=== PATIENT | female | born 1980 | race Caucasian/White ===

== ENCOUNTER 2017-10-18 06:23 | Day surgery (SDC) | payer BC ==
[~2017-10-18] VITALS: Ht 167.6 cm; Wt 55.8 kg
[2017-10-18] VITALS (8 sets, daily range): BP systolic 108–133; BP diastolic 54–96
[2017-10-18] MEDS ORDERED: Lidocaine 1% MPF 10mg/ml 5ml ONE (06:24)
[2017-10-18] MEDS ORDERED: Propofol 200mg/20ml IV ONE (06:24)
[2017-10-18] MEDS ORDERED: Midazolam 2mg/2ml Inj ONE (06:24)
[2017-10-18] MEDS ORDERED: LIALDA1.2 GM ORAL (07:00)
[2017-10-18] MEDS ORDERED: LR 1000ml 1,000 ML IVLG SCH ×2 (07:00→07:17)
--- NOTE | 2017-10-18 07:17 | Anethesia Preoperative Eval ---
Anesthesia Pre-op PMH/ROS General Date of Evaluation: Oct 18, 2017 Time of Evaluation: 07:01 Anesthesiologist: Anamika ASA Score: ASA 1 Mallampati Score Class I : Soft palate, uvula, fauces, pillars visible Class II: Soft palate, uvula, fauces visible Class III: Soft palate, base of uvula visible Class IV: Only hard plate visible Mallampati Classification: Class I Surgeon: Michael Diagnosis: Abd Pain Surgical Procedure: Colonoscopy Anesthesia History: none Family History: no anesthesia problems Allergies: Coded Allergies: MORPHINE (Verified Allergy, Severe, 10/18/17) palpitations, sob Medications: see eMAR Past Medical History Pulmonary: Reports: other - Bronchitis , Pneumonia Gastrointestinal/Genitourinary: Reports: other - Ucerative Colitis, UTI Anesthesia Pre-op Phys. Exam Physician Exam Last Vital Signs Date Time Temp Pulse Resp B/P (MAP) Pulse Ox O2 Delivery O2 Flow Rate FiO2 10/18/17 07:03 98.5 71 16 108/68 100 Room Air 98.5 Constitutional: NAD Neurologic: CN 2-12 intact Cardiovascular: RRR Respiratory: CTA Gastrointestinal: S/NT/ND Airway Exam Mallampati Score: Class I MO: full ROM: full Teeth: intact Anesthesia Pre-op A/P Labs Urine Test Test 10/18/17 06:35 Urine HCG, Qualitative Pending Risk Assessment & Plan Assessment: GA Plan: GA Status Change Before Surgery: Mac Gore MD Oct 18, 2017 07:17
--- NOTE | 2017-10-18 07:18 | Pre-Procedure Note/Attestation ---
Pre-Procedure Note/Attestation Complete Prior to Procedure Planned Procedure: not applicable Procedure Narrative: colon Indications for Procedure Pre-Operative Diagnosis: colon polyp, UC Attestation I attest that I discussed the nature of the procedure; its benefits; risks and complications; and alternatives (and the risks and benefits of such alternatives ), prior to the procedure, with the patient (or the patient's legal operations representative). I attest that, if there was a reasonable possibility of needing a blood transfusion, the patient (or the patient's legal operations representative) was given the [facility] standardized written summary, pursuant to the [place] Blood Safety Act ([place] Health and Safety Code # 1645, as amended). I attest that I re-evaluated the patient just prior to the surgery and that there has been no change in the patient's H&P, except as documented below: CAMILLE NORIEGA Oct 18, 2017 07:18
--- NOTE | 2017-10-18 07:19 | Short Stay Surgery H&P ---
History of Present Illness History of Present Illness Chief Complaint See typed and updated H&P HPI Jacquie Verde is a 37 year old female who was admitted on for Ulcerated Colitis Patient History Allergies: Coded Allergies: MORPHINE (Verified Allergy, Severe, 10/18/17) palpitations, sob PAST MEDICAL HISTORY: Past Surgeries: Social History: Medication History Scheduled Mesalamine (Lialda), 2.4 GM ORAL DAILY, (Reported) Physical Exam Vital Signs Last Vital Signs Date Time Temp Pulse Resp B/P (MAP) Pulse Ox O2 Delivery O2 Flow Rate FiO2 10/18/17 07:03 98.5 71 16 108/68 100 Room Air 98.5 Labs Laboratory Tests Test 10/18/17 06:35 Urine HCG, Qualitative Negative (NEGATIVE) Plan Attestation Are the patient's medical conditions optimized for surgery? CAMILLE NORIEGA Oct 18, 2017 07:19
[2017-10-18] MEDS ORDERED: Hydromorphone 0.5mg/0.5ml inj IVP PRN (07:30)
[2017-10-18] MEDS ORDERED: oxyCODONE HCL/Acetaminophen 5/325mg ORAL PRN (07:30)
[2017-10-18] MEDS ORDERED: Atropine Inj 1mg/10ml Syr IV PRN (07:30)
[2017-10-18] MEDS ORDERED: Labetalol 5mg/ml 20ml vial IV PRN (07:30)
[2017-10-18] MEDS ORDERED: HYDROcodone/Acetamin 7.5/325 tab ORAL PRN (07:30)
[2017-10-18] MEDS ORDERED: LORazepam Inj 2mg/ml 1ml IV PRN (07:30)
[2017-10-18] MEDS ORDERED: Ketorolac 30mg Inj IV PRN ×2 (07:30)
[2017-10-18] MEDS ORDERED: DiphenhydrAMINE 50mg/ml Inj IVP PRN (07:30)
[2017-10-18] MEDS ORDERED: Midazolam 2mg/2ml Inj IVP PRN (07:30)
[2017-10-18] MEDS ORDERED: fentaNYL 100 mcg/2 mL IV PRN (07:30)
[2017-10-18] MEDS ORDERED: Norco 5mg/325mg tab ORAL PRN (07:30)
--- NOTE | 2017-10-18 07:44 | Immediate Post-Op Evaluation ---
Immediate Post-Op Evalulation Immediate Post-Op Evalulation Procedure: Colonoscopy Date of Evaluation: Oct 18, 2017 Time of Evaluation: 08:34 IV Fluids: 700 LR Blood Products: 0 Estimated Blood Loss: 2 Urinary Output: 0 Blood Pressure Systolic: 120 Blood Pressure Diastolic: 64 Pulse Rate: 67 Respiratory Rate: 16 O2 Sat by Pulse Oximetry: 100 Temperature (Fahrenheit): 97.9 Pain Score (1-10): 2 Nausea: No Vomiting: No Complications 0 Patient Status: awake, reacts, patent, none Hydration Status: adequate Mac Willson MD Oct 18, 2017 07:44
--- NOTE | 2017-10-18 13:45 | Procedure Note ---
DATE OF PROCEDURE: 10/18/2017 GASTROENTEROLOGY PROCEDURE REPORT PROCEDURE: Colonoscopy with biopsy and snare polypectomy. SURGEON: Caesar Rodriguez M.D. ANESTHESIA: Please see the separate anesthesiologist notes for details. PRE-ENDOSCOPIC DIAGNOSES: History of ulcerative colitis to 15 cm as well as history of colonic polyp outside the colitis area. POST-ENDOSCOPIC DIAGNOSES: 1. Normal terminal ileum to approximately 10 cm. 2. A patchy colitis involving the distal ascending colon as well as distal transverse colon. 3. Very mild distal proctitis, but otherwise unaffected distal colon visually. 4. Diminutive 8 mm polyp, status post snare polypectomy. 5. Status post random biopsies from terminal ileum and throughout the colon. DESCRIPTION OF PROCEDURE: The procedure, its risks, indications, alternatives, and possible complications including, but not limited to bleeding, infection, perforation, , and anesthesia complications were explained to the patient and an informed consent was obtained. The patient was then sedated in the left lateral decubitus position and a rectal exam was done. The colonoscope was then introduced into the rectum and advanced to the terminal ileum for about 10 cm into the terminal ileum. The colonoscope was then gradually withdrawn and the mucosa was examined carefully. The terminal ileal mucosa was normal and it was biopsied for review. There were two areas of patchy colitis involving the distal ascending colon and also the distal transverse colon showing mucosal granularity, loss of vascularity, and scattered white spots. The colonic segments in between each portions and distal to portion however were visually normal. The distal 15 cm of colon appeared visually normal except for the very last portion in the distal half of the rectum where there was some erythema and loss of vascularity. There was a diminutive polyp measuring approximately 8 mm in the sigmoid colon at 25 cm, which was removed with a cold snare polypectomy. There were random biopsies obtained from the terminal ileum and throughout the colon and sent to pathology in separate bottles. Retroflexed view of the rectum was otherwise unremarkable. The colonoscope was removed and the patient was sent to recovery in good condition. COMPLICATIONS: None. ASSESSMENT: This examination was notable for some patchy proximal colitis, which may indicate a change in the behavior of this patient's inflammatory bowel disease. The biopsies will be evaluated as an outpatient. The patient will be counseled regarding possible change in the treatment and management. RECOMMENDATIONS: 1. Follow up biopsy results. 2. Continue current mesalamine dose. 3. Outpatient followup. Caesar Rodriguez M.D. DR: SHAGGY JOB#: [id number] CC: ABBI
--- NOTE | 2017-10-23 10:32 | Endoscopy Procedure Note ---
Endoscopy Procedure Note General Indication for Procedure: UC Procedures Performed: colonoscopy Operative Findings/Diagnosis: patchy colitis Specimen: yes Pt Tolerated Procedure Well: Yes Estimated Blood Loss: none Anesthesia Anesthesiologist: see report Anesthesia: MAC, moderate sedation Medications Medication Given: see anesthesia record Inserted Devices Implant(s) used?: No GI Core Measures 50 yrs or older w/o bx or poly: Not Applicable 10yrs. F/U not recommended: Not Applicable If not recommended, why?: CAMILLE NORIEGA Oct 23, 2017 10:31
--- NOTE | 2017-10-23 10:33 | Brief Operative Note ---
Immediate Post Operative Note Operative Note Chief Complaint: UC Pre-op Diagnosis: colon polyp, UC Procedure: colon , bx Post-op Diagnosis: patchy colitis Surgeon: tyrone Anesthesiologist: see report Anesthesia: MAC Specimen: yes Complications: none Condition: stable Fluids: recorded Estimated Blood Loss: none Drains: none Implant(s) used?: No CAMILLE NORIEGA Oct 23, 2017 10:33
== END 2017-10-18 09:45 | disposition home or self-care (01) ==
LOC: GAS 06:23
DX: K51.20 Ulcerative (chronic) proctitis without complications (principal); K63.5 Polyp of colon; Z88.6 Allergy status to analgesic agent
CPT/HCPCS: 45380; 81025; J2250; J2704; 94003; 94150